=== PATIENT | female | born 1940 | race Caucasian/White ===

== ENCOUNTER 2016-10-19 15:57 | Emergency (ER) | payer MEDICARE, OTHER ==
[2016-10-19 16:08] VITALS: BP 117/59; PULSE 58; RESP 20; TEMP 97.8
[2016-10-19] MEDS ORDERED: IBUPROFEN 600 MG STARTER PACK 4 TAB BTL PO STA (16:28)
--- NOTE | 2016-10-19 16:30 | ED ---
General Adult HPI - General Chief complaint: Recheck/Abnormal Lab/Rx Stated complaint: arthritis Time Seen by Provider: 10/19/16 16:16 Source: patient Mode of arrival: ambulatory Limitations: no limitations - History of Present Illness Initial comments: Patient is a pleasantly demented 76-year-old female who presents to the emergency department for evaluation of bilateral hand pain. Patient is accompanied by her grandson who states that he took her to her primary care physician's office a week and a half ago at which time she was diagnosed with rheumatoid arthritis and prescribed a medication. The grandson is unsure what the medication was. He states that he took the prescription to a pharmacy and they were unable to fill it, they advised him that they needed to discuss the prescription with the prescribing physician. Grandson states that he has called the physician's office and left messages to times, he states that they have called him back but he has missed the calls, he also states that the pharmacy has not been able to fill the medication. He states that his grandma continues to complain about tightness in her hands every day so he came to the emergency department for further evaluation. Patient and the grandmother both deny any recent injuries. Grandson reports that she's been in her usual state of health, eating, drinking and acting her normal self. Patient denies any additional pain or other complaints. - Related Data Home Medications Medication Instructions Recorded Confirmed Donepezil HCl [Aricept Odt] 10 mg PO HS 09/21/13 10/19/16 Memantine HCl [Namenda Xr] 28 mg PO DAILY 09/21/13 10/19/16 traZODone HCL [Desyrel] 25 mg PO HS 09/21/13 10/19/16 Aspirin EC [Ecotrin] 325 mg PO DAILY 01/02/16 10/19/16 Cholecalciferol [Vitamin D3] 1,000 unit PO DAILY 01/02/16 10/19/16 Citalopram Hydrobromide [CeleXA] 10 mg PO DAILY 01/02/16 10/19/16 Cyanocobalamin [Vitamin B-12] 1,000 mcg PO DAILY 01/02/16 10/19/16 Folic Acid 0.4 mg PO DAILY 01/02/16 10/19/16 Meloxicam [Mobic] 7.5 mg PO DAILY PRN 01/02/16 10/19/16 Vit A/Vit C/Vit E/Zinc/Copper 1 cap PO BID 01/02/16 10/19/16 [ICAPS SOFTGEL] Previous Rx's Medication Instructions Recorded Ibuprofen [Motrin] 600 mg PO Q8HR PRN #30 tab 10/19/16 Allergies Allergy/AdvReac Type Severity Reaction Status Date / Time No Known Allergies Allergy Verified 10/19/16 16:24 Review of Systems ROS Statement: Those systems with pertinent positive or pertinent negative responses have been documented in the HPI. ROS Other: All systems not noted in ROS Statement are negative. Constitutional: Denies: fever, chills Respiratory: Denies: cough Cardiovascular: Denies: chest pain Gastrointestinal: Denies: abdominal pain, nausea, vomiting, diarrhea, constipation Genitourinary: Denies: urgency, dysuria Musculoskeletal: Reports: joint swelling, arthralgia. Denies: back pain Skin: Denies: rash, lesions, change in color, change in hair/nails, pruritus Neurological: Denies: headache, weakness Psychiatric: Denies: anxiety Hematological/Lymphatic: Denies: easy bleeding, easy bruising Past Medical History Past Medical History: Dementia, Rheumatoid Arthritis (RA) Additional Past Medical History / Comment(s): alzheimers, depression History of Any Multi-Drug Resistant Organisms: None Reported Additional Past Surgical History / Comment(s): left elbow surgery Past Psychological History: Depression Smoking Status: Never smoker Past Alcohol Use History: None Reported Past Drug Use History: None Reported General Exam Limitations: no limitations General appearance: alert, in no apparent distress Head exam: Present: atraumatic, normocephalic, normal inspection Eye exam: Present: PERRL ENT exam: Present: mucous membranes moist, other (edentulous) Neck exam: Present: normal inspection Respiratory exam: Present: normal lung sounds bilaterally. Absent: respiratory distress Cardiovascular Exam: Present: regular rate, normal rhythm GI/Abdominal exam: Present: soft. Absent: distended, tenderness Rectal exam: Present: deferred Extremities exam: Present: other ([place] nodes of DIP, full ROM of wrists and fingers, normal cap refill, normal sensation, normal strength) Neurological exam: Present: alert, other (oriented to self) Psychiatric exam: Present: other (pleasantly demented) Skin exam: Present: warm, dry, intact, normal color. Absent: rash, cyanosis, diaphoretic, erythema, urticaria, vesicles, petechiae, pallor, mottled, abrasion Course Vital Signs 10/19/16 16:06 Temperature 97.8 F Pulse Rate 58 L Respiratory 20 Rate Blood Pressure 117/59 O2 Sat by Pulse 96 Oximetry Medical Decision Making - Medical Decision Making Patient was seen and evaluated, history was obtained from the patient and her grandson at bedside Patient has a history of arthritis, was recently told she has rheumatoid arthritis Per the patient's grandson she has been prescribed a medication he has been unable to fill at the local pharmacy and has been unable to contact her primary care doctor to discuss this, grandson concerned that his grandmother continues to complain of tightness in her hands Physical exam with no neurovascular deficits in the hands, normal strength, normal sensation, normal cap refill, [place] nodes in the DIPs I advised the patient and her grandson that treatment of choice for arthritis is anti-inflammatory medications. Patient has no contraindications to taking NSAIDs, she has no history of GI bleeding, she is not on any anticoagulant medication and has no history of kidney disease per the grandson. Patient was given a dose of Motrin 600 and prescribed Motrin 600 3 times a day and advised to follow-up with her primary care physician. Patient remained pleasantly confused but was happy that she was offered medication, grandson expressed understanding and agreement with the plan. Advised to bring his grandmother back if she develops any worsening, any rashes or changes in her skin or develops any signs or symptoms which he finds concerning. Grandson expressed understanding of the plan. Disposition Clinical Impression: Arthritis Disposition: HOME SELF-CARE Condition: Good Instructions: Rheumatoid Arthritis (ED) Prescriptions: Ibuprofen [Motrin] 600 mg PO Q8HR PRN #30 tab PRN Reason: Pain Referrals: Trell Chung MD [Primary Care Provider] - 1-2 days
== END 2016-10-19 16:44 | disposition home or self-care (01) ==
LOC: EC 15:57
DX: M19.041 Primary osteoarthritis, right hand (principal); M19.042 Primary osteoarthritis, left hand; G30.9 Alzheimer's disease, unspecified; F02.80 Dementia in other diseases classified elsewhere, unspecified severity, without behavioral disturbance, psychotic disturbance, mood disturbance, and anxiety; M06.9 Rheumatoid arthritis, unspecified; F32.9 Major depressive disorder, single episode, unspecified; Z79.82 Long term (current) use of aspirin; Z79.899 Other long term (current) drug therapy
CPT/HCPCS: 99283

== ENCOUNTER → 2018-08-12 | Outpatient (CLI) | payer MEDICARE, OTHER ==
--- NOTE | 2018-08-12 15:06 | US ---
EXAMINATION TYPE: US abdomen comp/pelvis limited DATE OF EXAM: 08/12/2018 COMPARISON: None CLINICAL HISTORY: N18.9 RENAL INSUFFICIENCY,R94.5 ELEVATED LFTS. Pt special needs unable to take in a breath and hold it, poor historian EXAM MEASUREMENTS: Liver Length: 13.1 cm Gallbladder Wall: 0.2 cm CBD: 0.2 cm Spleen: 7.1 cm Right Kidney: 7.4 x 3.2 x 3.2 cm Left Kidney: 6.9 x 2.7 x 3.4 cm Post Void Residual: 0.5 mL Pancreas: Obscured by bowel gas Liver: Obscured by overlying bowel gas, portions seen wnl Gallbladder: multiple stones CBD: wnl Spleen: heterogenous Right Kidney: No hydronephrosis or masses seen Left Kidney: small upper pole cyst 0.6 x 0.5 x 0.6 cm Upper IVC: Obscured by overlying bowel gas Abd Aorta: Obscured by overlying bowel gas Bladder: wnl Bilateral Jets Seen No Normal Post Void Residual (normal less than 50ml) Yes Bladder is poorly distended and thus suboptimally evaluated. Pancreas is suboptimally seen on images saved secondary to shadowing from overlying bowel gas per technologist. Visualized liver is heterogen eous without mass or ductal dilatation. Gallbladder is seen with multiple mobile shadowing gallstones . No pericholecystic fluid or abnormal gallbladder wall thickening is present. Some cortical thinning and atrophy of both kidneys is seen without hydronephrosis. Increased cortical echogenicity left kid lynn is noted. Markedly heterogeneous spleen may reflect replacement by numerous calcified granulomas. IMPRESSION: Suboptimal study with findings consistent with products of chronic medical renal disease as there is cortical thinning and atrophy with increased cortical echogenicity. Probable mild diffuse fatty infiltration of liver.
== END ==
LOC: RADUSWWP 07:06
PROVIDERS: ATTEND Internal Medicine
DX: N18.9 Chronic kidney disease, unspecified (principal); R94.5 Abnormal results of liver function studies
CPT/HCPCS: 76700; 76857

== ENCOUNTER 2019-09-28 10:16 | Inpatient (IN) | payer MEDICARE, OTHER ==
--- NOTE | 2019-09-28 11:23 | XR ---
EXAMINATION TYPE: AP view pelvis and 2 views right hip 2 views right femur DATE OF EXAM: 09/28/2019 COMPARISON: NONE HISTORY: 79-year-old female fall with pain FINDINGS: Osteopenia. Dominant bowel content obscures the sacrum. Possible prominent distention of the stomach. Mild degenerative change of both hips. A mildly comminuted, mildly impacted intertrochanteric fractu re of the proximal right femur. The mid to distal right femur shows no acute fracture. IMPRESSION (pelvis, right hip, right femur): Impacted and mildly comminuted intertrochanteric fracture proximal right femur.
--- NOTE | 2019-09-28 12:44 | ED ---
Fall HPI - General Chief Complaint: Fall Stated Complaint: fall, hip pain Time Seen by Provider: 09/28/19 10:16 Source: patient, family, EMS Mode of arrival: EMS - History of Present Illness Initial Comments: Is a 79-year-old female who had been over the cook pickled meat a blank which fell landing on her buttock. She complains right side pain. She was brought in by EMS. In position comfort she did appear to have a shortening of the right lower extremity. No head neck or back injury reported patient herself is a poor historian MD Complaint: fall - Related Data Home Medications Medication Instructions Recorded Confirmed Aspirin EC [Ecotrin] 325 mg PO HS 01/02/16 09/28/19 Acetaminophen [Tylenol] 1,000 mg PO BID 09/28/19 09/28/19 Memantine HCl/Donepezil HCl 1 tab PO DAILY 09/28/19 09/28/19 [Namzaric 28 mg-10 mg Capsule] Allergies Allergy/AdvReac Type Severity Reaction Status Date / Time No Known Allergies Allergy Verified 09/28/19 12:15 Review of Systems ROS Statement: Those systems with pertinent positive or pertinent negative responses have been documented in the HPI. ROS Other: All systems not noted in ROS Statement are negative. Past Medical History Past Medical History: Dementia, Rheumatoid Arthritis (RA) Additional Past Medical History / Comment(s): alzheimers, depression History of Any Multi-Drug Resistant Organisms: None Reported Additional Past Surgical History / Comment(s): left elbow surgery, c section 1996 Past Psychological History: Depression Smoking Status: Never smoker Past Alcohol Use History: None Reported Past Drug Use History: None Reported General Exam - General Exam Comments Initial Comments: This a well-developed asthenic appearing female Limitations: no limitations General appearance: alert, anxious, in distress Head exam: Present: atraumatic, normocephalic, normal inspection Eye exam: Present: normal appearance, PERRL, EOMI. Absent: scleral icterus, conjunctival injection, periorbital swelling ENT exam: Present: normal exam, mucous membranes moist Neck exam: Present: normal inspection. Absent: tenderness, meningismus, lymphadenopathy Respiratory exam: Present: normal lung sounds bilaterally. Absent: respiratory distress, wheezes, rales, rhonchi, stridor Cardiovascular Exam: Present: normal rhythm, bradycardia, normal heart sounds. Absent: systolic murmur, diastolic murmur, rubs, gallop, clicks GI/Abdominal exam: Present: soft, normal bowel sounds. Absent: distended, tenderness, guarding, rebound, rigid Rectal exam: Present: deferred Extremities exam: Present: tenderness, normal capillary refill, other (There is palpation of the right hip to palpation no definite step-off or crepitation no overt tenderness on pelvic rock.). Absent: full ROM, pedal edema, joint swelling, calf tenderness Back exam: Present: normal inspection Neurological exam: Present: alert, oriented X3, CN II-XII intact Psychiatric exam: Present: normal affect, normal mood Skin exam: Present: warm, dry, intact, normal color. Absent: rash Course Vital Signs 09/28/19 10:21 Temperature 98.0 F Pulse Rate 53 L Respiratory 16 Rate Blood Pressure 122/77 O2 Sat by Pulse 98 Oximetry Medical Decision Making - Medical Decision Making I did discuss the case with the patient and family members. I also did discuss case with Rosanne who is the PA for Dr. Dick. Patient will be admitted. Medical clearance by Dr. Mederos who I did contact. - Radiology Data Radiology results: report reviewed (I did review the imaging and reports patient does have an impacted IT fracture of the right hip.), image reviewed Disposition Clinical Impression: Fall, Closed right hip fracture Disposition: ADMITTED IP TO THIS [facility] Condition: Fair Referrals: Trell Chung MD [Primary Care Provider] - 1-2 days
[2019-09-28] MEDS ORDERED: NALOXONE 0.4 MG/ML 1 ML VIAL IV PRN (12:51)
[2019-09-28] MEDS ORDERED: ACETAMINOPHEN TAB 325 MG TAB PO PRN (12:51)
--- NOTE | 2019-09-28 13:03 | XR ---
EXAMINATION TYPE: XR chest 1V portable DATE OF EXAM: 09/28/2019 Comparison: 09/21/2013 Clinical History: 79-year-old female pain after Fall. Hip fracture. Findings: Low lung volumes. Heart borderline enlarged. Mild interstitial prominence. No consolidation or pleura l effusion seen. Impression: Hypoventilatory changes. No acute cardiopulmonary process.
[2019-09-28 13:21] LABS: Basophils % (A) 0 %; Eosinophils # (A) 0.2 k/uL (0-0.7); Eosinophils % (A) 1 %; HCT 44.3 % (34.0-46.0); HGB 14.1 gm/dL (11.4-16.0); Hypochromasia Slight; Lymphocytes # (A) 0.6 k/uL (1.0-4.8); Lymphocytes % (A) 4 %; MCH 32.1 pg (25.0-35.0); MCHC 31.8 g/dL (31.0-37.0); MCV 100.7 fL (80.0-100.0); Macrocytosis Slight; Mean Platelet Volume 7.9; Monocytes # (A) 0.5 k/uL (0-1.0); Monocytes % (A) 3 %; Neutrophils % (A) 91 %; Platelet Count 601 k/uL (150-450); RBC 4.39 m/uL (3.80-5.40); RDW 14.2 % (11.5-15.5); WBC 15.3 k/uL (3.8-10.6)
[2019-09-28 13:30] LABS: Albumin 4.1 g/dL (3.5-5.0); Calcium 9.3 mg/dL (8.4-10.2); Potassium 4.4 mmol/L (3.5-5.1); Total Bilirubin 0.4 mg/dL (0.2-1.3); Total Protein 6.9 g/dL (6.3-8.2)
[2019-09-28 13:32] LABS: Prothrombin Time 10.3 sec (9.0-12.0)
[2019-09-28] MEDS: SODIUM CHLORIDE 0.9% 1,000 ML IV SCH (13:35)
[2019-09-28 13:55] LABS: Appearance,Urine Cloudy (Clear); Bacteria,Urine Many /hpf; Bilirubin,Urine Negative (Negative); Blood,Urine Small (Negative); Color,Urine Yellow; Glucose,Urine (UA) Negative (Negative); Ketones,Urine Negative (Negative); Leukocyte Esterase,Urine Large (Negative); Mucus,Urine Moderate /hpf; Nitrite,Urine Negative (Negative); Protein,Urine 1+ (Negative); RBC,Urine 3 /hpf (0-5); Specific Gravity,Urine 1.032 (1.001-1.035); Squamous Epithelial Cell,Urine 5 /hpf (0-4); WBC,Urine 74 /hpf (0-5)
[2019-09-28] MEDS ORDERED: ALPRAZolam 0.25 MG TAB PO PRN (14:43)
[2019-09-28] MEDS ORDERED: HYDROmorphone 0.5 MG/0.5 ML SYRINGE IVP PRN (14:43)
--- NOTE | 2019-09-28 16:54 | XR ---
EXAMINATION TYPE: XR abdomen 1V DATE OF EXAM: 09/28/2019 4:36 PM CLINICAL HISTORY: Abdominal pain and distention. TECHNIQUE: Single supine KUB image of the abdomen is obtained. COMPARISON: None. FINDINGS: Gas prominent small and large bowel loops throughout the abdomen and pelvis greatest in the left side where suspected gas dilated colonic loops. Lung bases are not included. Osseous structures are demineralized. IMPRESSION: Overall nonspecific bowel gas pattern. Possible left-sided ileus. Other etiologies not ex cluded. At minimum short-term radiographic follow-up is advised.
[2019-09-28] MEDS: PANTOPRAZOLE 40 MG/10 ML VIAL IVP SCH (22:20)
--- NOTE | 2019-09-28 23:17 | CONS ---
CONSULTATION DATE OF SERVICE: 09/28/2019 REASON FOR CONSULTATION: Advice regarding rheumatoid arthritis and multiple medical issues, requested by Dr. Dick, as well as preoperative clearance. HISTORY OF PRESENT ILLNESS: This 79-year-old woman with a past medical history of dementia, rheumatoid arthritis, Alzheimer's dementia, was living with her son, who is also the legal guardian. The patient apparently had a fall and then went to the bathroom, and subsequently patient again fell. Patient suffered also some shortening of the right extremity. Patient was complaining of severe pain. X-ray showed severe osteopenia as well as impacted, mildly comminuted intertrochanteric fracture of the proximal right femur, and the patient was admitted for further evaluation and treatment. There is no history of any fever, rigor or chills. No history of headache, loss of consciousness, seizures. The hip x-ray also showed some apparent distention of the stomach. PAST MEDICAL HISTORY: Dementia, rheumatoid arthritis, Alzheimer's, depression after elbow surgery. MEDICATIONS: 1. Tylenol p.r.n. 2. Namenda 1 tablet p.o. daily. 3. Ecotrin 320 at bedtime. ALLERGIES: NONE. FAMILY HISTORY: No history of heart disease or strokes in the family. SOCIAL HISTORY: No history of smoking. No history of alcohol intake. REVIEW OF SYSTEMS: ENT: Diminished hearing. Diminished vision. CARDIOVASCULAR SYSTEM: No angina, palpitations. RESPIRATORY SYSTEM: No cough, hemoptysis. GI: As mentioned earlier. : No dysuria or retention. NERVOUS SYSTEM: As mentioned earlier. ALLERGY/IMMUNOLOGY: No asthma, hayfever. MUSCULOSKELETAL: As mentioned earlier. HEMATOLOGY/ONCOLOGY: No history of anemia. ENDOCRINE: No history of diabetes, hypothyroidism. CONSTITUTIONAL: As mentioned earlier. DERMATOLOGY: Negative. RHEUMATOLOGY: Negative. PSYCHIATRY: As mentioned earlier. PHYSICAL EXAMINATION: Patient alert and oriented x3. Pulse 53, blood pressure 122/77, respirations 16, temperature 98 degrees, pulse ox 98% on room air. HEENT: Conjunctivae normal. Oral mucosa moist. NECK: No jugular venous distention. No carotid bruit. No lymph node enlargement. CARDIOVASCULAR SYSTEM: S1, S2 muffled. RESPIRATORY SYSTEM: Breath sounds diminished at the bases. No rhonchi. No crackles. ABDOMEN: Soft. Mild diffuse distention. No tenderness. No mass palpable. LEGS: Status post right hip fracture. NERVOUS SYSTEM: Higher functions as mentioned earlier. Moves all 4 limbs. No focal motor or sensory deficit. LYMPHATICS: No lymph node palpable in neck, axillae or groin. SKIN: No ulcer, rash, bleeding. JOINTS: As mentioned earlier. LYMPHATICS: No lymph node palpable in neck, axillae or groin. LABS: WBC 15.3, hemoglobin 14.1, MCV 107. Creatinine is 1.15. Alkaline phosphatase is 139. UA noted. ASSESSMENT: 1. Status post fall and right intertrochanteric proximal right femur fracture. 2. Acute urinary tract infection, present on admission. 3. Increased creatinine with mild acute renal failure with dehydration. 4. Increased white count. 5. Increased mean corpuscular volume. 6. Increased platelets. 7. Minimal abdominal distention. 8. Dementia. 9. Rheumatoid arthritis. 10.Alzheimer's. 11.Depression. 12.History of left elbow surgery. 13.FULL CODE. RECOMMENDATIONS AND DISCUSSION: In this 79-year-old woman who presented with multiple medical issues, at this time I recommend to continue current medications, continue symptomatic treatment. Otherwise, I reviewed the labs and the EKG, which showed some sinus bradycardia. Otherwise, the patient was asymptomatic prior to the illness, and the patient appears to have had good exercise tolerance prior to the fall. As mentioned earlier, the patient has some minimal acute renal failure as well as UTI. Will initiate IV antibiotics, hydration, IV fluids. Repeat labs in the morning. DVT prophylaxis. Incentive spirometry. Patient will be cleared for surgery. I would also recommend acute abdominal series to rule out the possibility of any significant ileus at this time. Otherwise, thank you, Dr. Dick, for letting us participate in the care of this patient. A copy of this dictation is being forwarded to Dr. Chung, who is the primary physician. MMODL / IJN: [id number] /
[2019-09-29] MEDS: SODIUM CHLORIDE 0.9% 1,000 ML IV SCH ×2 (02:41→18:52)
[2019-09-29] MEDS ORDERED: PANTOPRAZOLE 40 MG TABLET PO SCH (07:30)
[2019-09-29] MEDS: MULTIVITAMINS, THERA 1 EACH TAB PO SCH (09:07)
[2019-09-29] MEDS: HYDROcodone/APAP 5-325MG 1 EACH TAB PO PRN (09:07)
[2019-09-29] MEDS: DONEPEZIL 10 MG TAB PO SCH (09:07)
[2019-09-29] MEDS: PANTOPRAZOLE 40 MG/10 ML VIAL IVP SCH ×2 (09:07→21:09)
[2019-09-29] MEDS: MEMANTINE 10 MG TAB PO SCH ×2 (09:07→21:09)
[2019-09-29 10:19] LABS: Basophils % (A) 0 %; Eosinophils # (A) 0.1 k/uL (0-0.7); Eosinophils % (A) 1 %; HCT 39.2 % (34.0-46.0); Hypochromasia Slight; Lymphocytes # (A) 0.7 k/uL (1.0-4.8); Lymphocytes % (A) 6 %; MCH 33.8 pg (25.0-35.0); MCHC 33.1 g/dL (31.0-37.0); MCV 102.2 fL (80.0-100.0); Macrocytosis Slight; Mean Platelet Volume 8.3; Monocytes # (A) 0.8 k/uL (0-1.0); Monocytes % (A) 7 %; Neutrophils # (A) 9.8 k/uL (1.3-7.7); Neutrophils % (A) 85 %; Platelet Count 557 k/uL (150-450); RBC 3.83 m/uL (3.80-5.40); RDW 14.1 % (11.5-15.5); WBC 11.5 k/uL (3.8-10.6)
[2019-09-29 10:46] LABS: Potassium 4.7 mmol/L (3.5-5.1)
--- NOTE | 2019-09-29 12:10 | P.HPOR ---
History of Present Illness H&P Date: 09/29/19 This is an 79-year-old female who is admitted for right hip fracture after a fall. Patient has dementia and is a poor historian. No family is present in the room. Patient presented to the emergency room via EMS on 09/28/2019 and x- rays revealed intertrochanteric fracture of the right hip. Patient was then admitted for further management. Patient does complain of pain in the right hip today. Patient did answer yes or no questions today and denied pain elsewhere, other than in the right hip. Patient denies any fever/chills, numbness, weakness, tingling, abdominal pain, shortness of breath or chest pain. Review of Systems See HPI. Past Medical History Past Medical History: Dementia, Rheumatoid Arthritis (RA) Additional Past Medical History / Comment(s): alzheimers, depression History of Any Multi-Drug Resistant Organisms: None Reported Additional Past Surgical History / Comment(s): left elbow surgery, c section 1996 Past Anesthesia/Blood Transfusion Reactions: No Reported Reaction Past Psychological History: Depression Smoking Status: Never smoker Past Alcohol Use History: None Reported Past Drug Use History: None Reported - Past Family History Sister(s) Family Medical History: Diabetes Mellitus, Hypertension Medications and Allergies Home Medications Medication Instructions Recorded Confirmed Type Aspirin EC [Ecotrin] 325 mg PO HS 01/02/16 09/28/19 History Acetaminophen [Tylenol] 1,000 mg PO BID 09/28/19 09/28/19 History Memantine HCl/Donepezil HCl 1 tab PO DAILY 09/28/19 09/28/19 History [Namzaric 28 mg-10 mg Capsule] Allergies Allergy/AdvReac Type Severity Reaction Status Date / Time No Known Allergies Allergy Verified 09/28/19 12:15 Physical Examination On exam patient is resting comfortably in bed in no acute distress. Patient does answer yes or no to questions about pain and is alert. Right lower extremity exam: There is tenderness to palpation over the right hip. There right lower extremity is mildly shortened and externally rotated. Skin is intact. Dorsalis pedis pulse is 2+. The right lower extremity is warm and well perfused. Compartments are soft. Calf is soft and nontender to palpation. Sensation intact. Neurovascular status and circulatory status are intact. Exams of the head, neck, bilateral upper extremities and left lower extremity are within normal limits. Results X-rays of the right hip, pelvis and femur show an impacted and mildly comminuted intertrochanteric fracture of the proximal right femur. - Labs Labs: Abnormal Lab Results - Last 24 Hours (Table) 09/28/19 09/28/19 09/28/19 Range/Units 13:12 13:12 13:12 WBC 15.3 H (3.8-10.6) k/uL MCV 100.7 H (80.0-100.0) fL Plt Count 601 H (150-450) k/uL Neutrophils # 14.0 H (1.3-7.7) k/uL Lymphocytes # 0.6 L (1.0-4.8) k/uL APTT 20.0 L (22.0-30.0) sec BUN 21 H (7-17) mg/dL Creatinine 1.15 H (0.52-1.04) mg/dL Glucose 109 H (74-99) mg/dL Alkaline Phosphatase 139 H (38-126) U/L Urine Appearance (Clear) Urine Protein (Negative) Urine Blood (Negative) Ur Leukocyte Esterase (Negative) Urine WBC (0-5) /hpf Urine WBC Clumps (None) /hpf Ur Squamous Epith Cells (0-4) /hpf Urine Bacteria (None) /hpf Urine Mucus (None) /hpf 09/28/19 Range/Units 13:28 WBC (3.8-10.6) k/uL MCV (80.0-100.0) fL Plt Count (150-450) k/uL Neutrophils # (1.3-7.7) k/uL Lymphocytes # (1.0-4.8) k/uL APTT (22.0-30.0) sec BUN (7-17) mg/dL Creatinine (0.52-1.04) mg/dL Glucose (74-99) mg/dL Alkaline Phosphatase (38-126) U/L Urine Appearance Cloudy H (Clear) Urine Protein 1+ H (Negative) Urine Blood Small H (Negative) Ur Leukocyte Esterase Large H (Negative) Urine WBC 74 H (0-5) /hpf Urine WBC Clumps Many H (None) /hpf Ur Squamous Epith Cells 5 H (0-4) /hpf Urine Bacteria Many H (None) /hpf Urine Mucus Moderate H (None) /hpf H & H 09/28/19 Range/Units 13:12 Hgb 14.1 (11.4-16.0) gm/dL Hct 44.3 (34.0-46.0) % Coagulation 09/28/19 Range/Units 13:12 INR 1.0 (<1.2) Result Diagrams: 09/29/19 09:22 09/29/19 09:22 Assessment and Plan (1) Closed right hip fracture Current Visit: Yes Status: Acute Code(s): S72.001A - FRACTURE OF UNSP PART OF NECK OF RIGHT FEMUR, INIT SNOMED Code(s): 516809462 (2) Fall Current Visit: Yes Status: Acute Code(s): W19.XXXA - UNSPECIFIED FALL, INITIAL ENCOUNTER SNOMED Code(s): 8975364 Plan: 1. Patient is to be NPO after midnight. 2. Continue pain control. 3. Nonweightbearing to the right lower extremity. 4. Awaiting medical clearance. 5. Planning for closed reduction and intramedullary hip screw fixation of the right femur on 09/30/[address] Dick pending medical clearance and consent.
[2019-09-30] MEDS: SODIUM CHLORIDE 0.9% 1,000 ML IV SCH ×3 (01:39→18:16)
--- NOTE | 2019-09-30 01:42 | PN ---
PROGRESS NOTE DATE OF SERVICE: 09/29/2019 This 79-year-old woman who was admitted with a fall and right intertrochanteric proximal right femoral fracture was slated to have surgery tomorrow. The patient had some gastric distention on the x-ray, but nonspecific bowel pattern was noted. No chest pain. No palpitations. No fever. PHYSICAL EXAMINATION: On exam, alert and oriented x3. The pulse is 61, blood pressure 114/63, respirations 16, temperature 99.9, pulse ox 93% on room air. HEENT: Conjunctivae normal. NECK: No jugular venous distention. CARDIOVASCULAR: S1, S2 muffled. RESPIRATORY: Breath sounds diminished in the bases. No rhonchi, no crackles. ABDOMEN: Soft, nontender. No mass palpable. LEGS: Status post fracture. NERVOUS SYSTEM: No focal deficits. LABS: WBC 11.5, sodium 142, potassium 4.7. UA noted. Cultures are pending at this time. ASSESSMENT: 1. Status post fall and right intertrochanteric proximal right hip femoral fracture. 2. Acute urinary tract infection, present on admission. 3. Increased creatinine with mild acute renal failure with dehydration. 4. Increased WBC. 5. Increased MCV. 6. Increased platelets. 7. Minimal abdominal distention. 8. Dementia. 9. Rheumatoid arthritis. 10.Alzheimer's. 11.Depression. 12.History of left elbow surgery. 13.FULL CODE. RECOMMENDATIONS AND DISCUSSION: Recommend to continue current medications, continue symptomatic treatment. Otherwise the patient is medically stable for surgery with some extra risks because of the advanced age and multiple other medical issues. Cleared for surgery. We will closely monitor with Orthopedic Surgery. Further recommendations to follow. MMODL / IJN: [id number] /
[2019-09-30] MEDS: PANTOPRAZOLE 40 MG/10 ML VIAL IVP SCH ×2 (07:26→20:16)
[2019-09-30] MEDS: MEMANTINE 10 MG TAB PO SCH ×2 (07:28→20:16)
[2019-09-30] MEDS: DONEPEZIL 10 MG TAB PO SCH (07:28)
[2019-09-30 11:39] LABS: Calcium 8.5 mg/dL (8.4-10.2); Potassium 3.7 mmol/L (3.5-5.1)
[2019-09-30] MEDS: MULTIVITAMINS, THERA 1 EACH TAB PO SCH (11:42)
[2019-09-30 11:46] LABS: Basophils # (A) 0.1 k/uL (0-0.2); Basophils % (A) 0 %; Eosinophils # (A) 0.1 k/uL (0-0.7); Eosinophils % (A) 1 %; HCT 38.6 % (34.0-46.0); HGB 12.5 gm/dL (11.4-16.0); Lymphocytes # (A) 0.6 k/uL (1.0-4.8); Lymphocytes % (A) 4 %; MCH 32.4 pg (25.0-35.0); MCHC 32.4 g/dL (31.0-37.0); Macrocytosis Slight; Mean Platelet Volume 8.4; Monocytes # (A) 0.9 k/uL (0-1.0); Monocytes % (A) 7 %; Neutrophils # (A) 12.6 k/uL (1.3-7.7); Neutrophils % (A) 87 %; Platelet Count 507 k/uL (150-450); RBC 3.86 m/uL (3.80-5.40); RDW 14.1 % (11.5-15.5); WBC 14.5 k/uL (3.8-10.6)
[2019-09-30] MEDS ORDERED: ONDANSETRON 4 MG/2 ML VIAL IVP PRN (14:19)
[2019-09-30] MEDS ORDERED: DEXAMETHASONE SOD PHOSPHATE 10 MG/ML 1 ML VIAL IV ONE (14:19)
[2019-09-30] MEDS ORDERED: HYDROmorphone 0.5 MG/0.5 ML SYRINGE IVP PRN ×4 (14:19→16:06)
[2019-09-30] MEDS ORDERED: LIDOCAINE 1% (10MG/ML) FOR IV START INTRADERMA PRN (14:19)
[2019-09-30] MEDS: LACTATED RINGERS 1,000 ML IV SCH (14:26)
[2019-09-30] MEDS ORDERED: ONDANSETRON 4 MG/2 ML VIAL ONE (14:32)
[2019-09-30] MEDS ORDERED: NALOXONE 0.4 MG/ML 1 ML VIAL IV PRN (16:06)
[2019-09-30] MEDS ORDERED: traMADol 50 MG TAB PO PRN ×2 (16:08)
[2019-09-30] MEDS ORDERED: MIDAZOLAM 2 MG/2 ML VIAL ONE (16:14)
[2019-09-30] MEDS ORDERED: PROPOFOL 10 MG/ML 20 ML VIAL IV ONE (16:14)
[2019-09-30] MEDS ORDERED: KETAMINE 10 MG/ML 20 ML VIAL ONE (16:14)
[2019-09-30] MEDS ORDERED: ceFAZolin 1,000 MG in SODIUM CHLORIDE 0.9% 1,000 ML IRRIGATION ONE (16:57)
--- NOTE | 2019-09-30 17:15 | P.OP ---
Date of Procedure: 09/30/19 Procedure(s) Performed: PREOPERATIVE DIAGNOSIS: Right hip intertrochanteric fracture. POSTOPERATIVE DIAGNOSIS: Right hip intertrochanteric fracture. OPERATION: Right hip intertrochanteric fracture closed reduction and intramedullary nailing using Synthes IT nail. DONOR SUPPORT TECHNICIAN: Rosanne Jack PA-C (Assistance with: Patient positioning, retraction, exposure, hemostasis, fixation, irrigation, closure, dressing) ANESTHESIA: Spinal ESTIMATED BLOOD LOSS: 50 mL. COMPLICATIONS: None OPERATIVE FINDINGS: See dictation INDICATIONS: Mrs. Landers is 79 yo lady with a history of right intertrochanteric fracture. The patient presents to the operating room today for closed reduction and intramedullary nailing. I discussed the risks of surgery in detail as being inclusive of but not limited to: Bleeding, infection, scarring, discomfort, blood vessel and/or nerve damage, need for further surgery, malunion, nonunion, gait disturbance including persistent or permanent limp, limb length inequality, arthritis, hardware failure, blood clot, pulmonary embolism, , and other risks. The consent form has been signed. PROCEDURE: After appropriate consent was obtained, the patient was taken to the operating room and placed in supine position. [Spinal] anesthetic was administered and after confirmation of adequate anesthesia, the patient was carefully placed in the supine position on the operating room table in the fracture table. The patient was placed up against a well-padded peroneal post. Care was taken to make sure about that all pressure points were adequately padded. The affected leg was placed in boot traction and the unaffected leg was placed in a well leg man. Using gentle longitudinal distraction as well as adduction and internal rotation, the fracture was reduced as assessed by AP and lateral C-arm imaging. Once a satisfactory reduction had been obtained, the thigh was prepped and draped in the usual aseptic fashion using ChloraPrep. Ioban drape was used for the case and the patient received intravenous antibiotics prior to incision. Timeout was called, confirming patient identity, side, procedure, and administration of antibiotics. The incision was then created with a #10 blade just proximal to the greater trochanter laterally. It was carried down through skin into the subcutaneous tissues and through fascia. Hemostasis was obtained using electrocautery. The tip of the greater trochanter was palpated and a guide pin was placed at the tip and directed into the femoral shaft as assessed with C-arm imaging. Once optimal pin position had been obtained, a 17 mm reamer was used over the guide pin to create a path for the IT nail. IT nail selected was assembled to the insertion jig on the back table and bushings were checked for accuracy. The nail was then inserted using gentle mallet taps until it was fully deployed. The amount of rotation of the implant was assessed based on the amount of anteversion of the femoral neck. This was rotated to match the patient's femoral neck anteversion and the helical blade guide was placed through the insertion jig and through an incision on the lateral side of the thigh more distal than the first. Once this guide was placed against the lateral cortex of the femur, a guide pin was drilled into the central region of the femoral head and neck as based on AP and lateral C-arm imaging. Once optimal pin position had been obtained, the guidewire was measured and appropriately sized helical blade was selected. The path for the helical blade was prepared using a tapered reamer. The helical blade was then inserted using gentle mallet taps along the guidewire until it was fully deployed. There was no displacement of the fracture during this step. The anti-rotation screw was locked down and the insertion apparatus for the helical blade was removed. The guide pin was then removed. Traction was then removed from the leg and the distal interlock was placed through the jig using standard technique. Finally, the insertion jig for the nail was removed and final C-arm images were taken and saved in both AP and lateral planes. The final x-rays showed satisfactory positioning of the implant and good reduction of the fracture. The top of the nail was plugged with a small quantity of bone wax and the incisions were then thoroughly irrigated with normal saline. Final hemostasis was obtained using electrocautery and closure of the fascia was performed using 0-Vicryl suture. 2-0 Vicryl suture was used in the subcutaneous tissues and standard skin closure was performed. Sterile dressing was then applied and the patient was carefully removed from the fracture table frame and placed onto the stretcher. The patient tolerated the procedure well. There were no complications and above noted blood loss. The patient was then subsequently transferred to recovery room in stable condition. Sponge and needle counts were correct.
[2019-09-30 18:42] LABS: HCT 39.1 % (34.0-46.0); Hypochromasia Slight; MCH 30.9 pg (25.0-35.0); MCHC 30.8 g/dL (31.0-37.0); MCV 100.5 fL (80.0-100.0); Macrocytosis Slight; Mean Platelet Volume 8.7; Platelet Count 390 k/uL (150-450); RBC 3.89 m/uL (3.80-5.40); RDW 14.2 % (11.5-15.5); WBC 12.5 k/uL (3.8-10.6)
--- NOTE | 2019-09-30 19:00 | XR ---
EXAMINATION TYPE: XR Hip Limited RT DATE OF EXAM: 09/30/2019 COMPARISON: 09/28/2019 HISTORY: Postop TECHNIQUE: FINDINGS: Single view shows intramedullary denita and transverse screw fixing the intertrochanteric comm inuted fracture of the right femur. Fragments are in anatomic position. IMPRESSION: No complicating process seen.
--- NOTE | 2019-09-30 19:34 | XR ---
EXAMINATION TYPE: XR Hip Complete RT DATE OF EXAM: 09/30/2019 COMPARISON: 09/28/2019 HISTORY: Hip surgery TECHNIQUE: 2 views Fluoroscopic images FINDINGS: There is intramedullary denita and transverse screw fixing the intertrochanteric comminuted fr acture of the right femur and regional anatomic position. IMPRESSION: Satisfactory reduction. No complicating process seen.
[2019-09-30 19:44] LABS: Basophils # (M) 0.25 k/uL (0-0.2); Monocytes # (M) 1.25 k/uL (0-1.0); Neutrophils % (M) 84 %; Nucleated Red Blood Cells 0 /100 WBC (0-0); Total Cells Counted 100
[2019-09-30] MEDS: ASPIRIN 325 MG TAB PO SCH (20:16)
[2019-09-30] MEDS: SENNOSIDES-DOCUSATE SODIUM 1 EACH TAB PO SCH (20:17)
[2019-09-30] MEDS ORDERED: ASPIRIN 325 MG TAB PO SCH (21:00)
--- NOTE | 2019-09-30 21:49 | PN ---
PROGRESS NOTE DATE OF SERVICE: 09/30/2019 This 79-year-old woman who was admitted with a fall and right intertrochanteric fracture underwent right hip intertrochanteric fracture closed reduction intramedullary nailing using Synthes [address] Dick. The patient tolerated the procedure. No chest pain. No palpitations. No fever. PHYSICAL EXAMINATION: Alert and oriented x3. Pulse 59, blood pressure 119/72, respirations 16, temperature 97.2, pulse ox 92% on room air. HEENT: Conjunctivae normal. NECK: No jugular venous distention. CARDIOVASCULAR SYSTEM: S1, S2 muffled. RESPIRATORY SYSTEM: Breath sounds diminished at the bases. No rhonchi. No crackles. ABDOMEN: Soft, non-tender. LEGS: Status post surgery. NERVOUS SYSTEM: No focal deficit. LABS: WBC 12.5, sodium 147. UA noted. ASSESSMENT: 1. Fall and right intertrochanteric proximal right hip femoral fracture, status post closed reduction and intramedullary nailing using a Synthes nail. 2. Increased white count. 3. Acute urinary tract infection, present on admission. 4. Increased creatinine with mild acute renal failure, present on admission. 5. Increased mean corpuscular volume. 6. Increased platelets. 7. Minimal abdominal distention, improved. 8. Dementia. 9. Rheumatoid arthritis. 10.History of dementia, Alzheimer's. 11.Depression. 12.History of left elbow surgery. 13.FULL CODE. RECOMMENDATIONS AND DISCUSSION: In this 79-year-old woman who presented with multiple complex medical issues, we will monitor the patient closely, continue the current medications, continue symptomatic treatment. Follow the patient closely with Surgery. Empiric antibiotics. Repeat labs. We will follow the patient closely. Possible ECF rehab. We will monitor along with Orthopedic Surgery. Further recommendations to follow. MMODL / IJN: [id number] /
[2019-10-01] MEDS: SODIUM CHLORIDE 0.9% 1,000 ML IV SCH ×4 (04:44→23:57)
--- NOTE | 2019-10-01 08:41 | P.PN ---
Subjective Progress Note Date: 10/01/19 This is an 79-year-old female who is status post closed reduction an intramedullary nailing of the right hip. This is postoperative day #1 and patient is seen and evaluated at bedside. Patient is pleasantly confused, but is able to admit to some pain in her right hip today. Patient denies any new complaints today. Objective - Vital Signs Vital signs: Vital Signs Temp 99.1 F 10/01/19 07:23 Pulse 75 10/01/19 07:23 Resp 16 10/01/19 07:23 BP 117/71 10/01/19 07:23 Pulse Ox 93 L 10/01/19 07:23 Intake & Output 09/30/19 10/01/19 10/01/19 18:59 06:59 18:59 Intake Total 901 850 Output Total 50 800 Balance 851 50 Intake: IV 901 Intake, IV Titration 850 Amount Sodium Chloride 0.9% 1, 800 000 ml @ 60 mls/hr IV . [id number] [facility] Rx#:[id number] ceFAZolin 2 gm In Sodium 50 Chloride 0.9% 50 ml @ 100 mls/hr IVPB Q8HR [facility] Rx# :[id number] Output: Urine 800 Straight 800 Estimated Blood Loss 50 Other: Voiding Method Diaper # Bowel Movements 0 - Exam Vital signs are stable. Patient is in no acute distress and is alert and oriented 3. Calf is soft and nontender to palpation. Dressings are clean, dry, and intact. The right lower extremity is warm and well perfused. Neurovascular status and circulatory status are intact. - Labs CBC & Chem 7: 09/30/19 18:23 09/30/19 10:53 Labs: Abnormal Lab Results - Last 24 Hours (Table) 09/30/19 09/30/19 09/30/19 Range/Units 10:53 10:53 18:23 WBC 14.5 H 12.5 H (3.8-10.6) k/uL MCV 100.5 H (80.0-100.0) fL MCHC 30.8 L (31.0-37.0) g/dL Plt Count 507 H (150-450) k/uL Neutrophils # 12.6 H (1.3-7.7) k/uL Neutrophils # (Manual) 10.50 H (1.3-7.7) k/uL Lymphocytes # 0.6 L (1.0-4.8) k/uL Lymphocytes # (Manual) 0.50 L (1.0-4.8) k/uL Monocytes # (Manual) 1.25 H (0-1.0) k/uL Basophils # (Manual) 0.25 H (0-0.2) k/uL Chloride 111 H (98-107) mmol/L Glucose 111 H (74-99) mg/dL Microbiology - Last 24 Hours (Table) 09/28/19 15:49 Blood Culture - Preliminary Blood No Growth after 48 hours 09/28/19 13:28 Urine Culture - Preliminary Urine,Catheterized Gram Neg Bacilli Assessment and Plan (1) Closed right hip fracture Current Visit: Yes Status: Acute Code(s): S72.001A - FRACTURE OF UNSP PART OF NECK OF RIGHT FEMUR, INIT SNOMED Code(s): 212881630 (2) Fall Current Visit: Yes Status: Acute Code(s): W19.XXXA - UNSPECIFIED FALL, INITIAL ENCOUNTER SNOMED Code(s): 0795084 Plan: 1. 50% weightbearing to the right lower extremity. 2. Dressings to stay intact for 10 days. 3. May shower with dressings in place. 4. [place] to be removed in 10-14 days. 5. Physical therapy for mobilization. 6. Aspirin 325 mg daily for anticoagulation. 7. Appreciate input from medicine. 8. Likely discharge to F on Thursday.
[2019-10-01] MEDS: PANTOPRAZOLE 40 MG/10 ML VIAL IVP SCH ×2 (09:24→21:04)
[2019-10-01] MEDS: MEMANTINE 10 MG TAB PO SCH ×2 (09:24→21:04)
[2019-10-01] MEDS: DONEPEZIL 10 MG TAB PO SCH (09:24)
[2019-10-01] MEDS: HYDROcodone/APAP 5-325MG 1 EACH TAB PO PRN (09:39)
[2019-10-01 09:44] LABS: Basophils % (A) 0 %; Eosinophils # (A) 0.1 k/uL (0-0.7); Eosinophils % (A) 1 %; HCT 35.6 % (34.0-46.0); HGB 11.2 gm/dL (11.4-16.0); Hypochromasia Slight; Lymphocytes # (A) 0.6 k/uL (1.0-4.8); Lymphocytes % (A) 5 %; MCH 32.2 pg (25.0-35.0); MCHC 31.5 g/dL (31.0-37.0); MCV 102.2 fL (80.0-100.0); Macrocytosis Slight; Mean Platelet Volume 8.2; Monocytes # (A) 0.7 k/uL (0-1.0); Monocytes % (A) 6 %; Neutrophils # (A) 10.5 k/uL (1.3-7.7); Neutrophils % (A) 88 %; Platelet Count 485 k/uL (150-450); RBC 3.48 m/uL (3.80-5.40)
[2019-10-01 10:00] LABS: Calcium 8.3 mg/dL (8.4-10.2); Potassium 3.7 mmol/L (3.5-5.1)
[2019-10-01] MEDS: MULTIVITAMINS, THERA 1 EACH TAB PO SCH (11:47)
[2019-10-01] MEDS: MAGNESIUM HYDROXIDE 2,400 MG/10 ML CUP PO PRN (16:13)
[2019-10-01] MEDS: LACTATED RINGERS 1,000 ML IV SCH (16:26)
--- NOTE | 2019-10-01 19:26 | PN ---
PROGRESS NOTE DATE OF SERVICE: 10/01/2019 This 79-year-old woman was admitted with fall and right hip fracture surgery. The patient has a UTI, E. coli grown from the culture which is this sensitive to ceftriaxone. No chest pain. No palpitations. No fever. PHYSICAL EXAMINATION: Alert and oriented x3. The pulse is 72, blood pressure 150/69, respiration 14, temperature 98.7, pulse ox 98% on room air. HEENT: Conjunctivae normal. Oral mucosa moist. NECK: No jugular venous distention. No lymph node enlargement. CARDIOVASCULAR: S1, S2, muffled. No S3, no S4, RESPIRATORY: Diminished breath sounds at the bases. A few scattered rhonchi, no crackles. ABDOMEN: Soft, nontender. LEGS: Status post surgery. NERVOUS SYSTEM: No focal deficits. LABS: WBC 12, hemoglobin 11.2, sodium 130, potassium 3.7. ASSESSMENT: 1. Fall and right intertrochanteric proximal right hip fracture status post closed reduction and intramedullary nailing using Synthes nail. 2. Increased WBC. 3. Acute urinary tract infection present on admission with E coli. 4. Increased creatinine with mild acute renal failure, present on admission. 5. Increased MCV. 6. Increased platelets. 7. Minimal abdominal distention, improved. 8. Dementia. 9. Rheumatoid arthritis. 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 11.History of depression. 12.History of left elbow surgery. 13.FULL CODE. RECOMMENDATIONS AND DISCUSSION: Recommend to continue current management, continue to monitor and symptomatic treatment. Otherwise, at this time I recommend continue the antibiotics. PT OT evaluation, ECF rehab. Guarded prognosis. Further recommendations to follow. MMODL / IJN: [id number] /
[2019-10-01] MEDS: ASPIRIN 325 MG TAB PO SCH (21:05)
[2019-10-01] MEDS: SENNOSIDES-DOCUSATE SODIUM 1 EACH TAB PO SCH (21:05)
[2019-10-02] MEDS: SODIUM CHLORIDE 0.9% 1,000 ML IV SCH ×3 (06:02→19:31)
[2019-10-02] MEDS: MEMANTINE 10 MG TAB PO SCH ×2 (08:19→22:09)
[2019-10-02] MEDS: DONEPEZIL 10 MG TAB PO SCH (08:19)
[2019-10-02] MEDS: PANTOPRAZOLE 40 MG/10 ML VIAL IVP SCH ×2 (08:19→22:09)
[2019-10-02] MEDS: HYDROcodone/APAP 5-325MG 1 EACH TAB PO PRN ×2 (08:33→22:14)
--- NOTE | 2019-10-02 09:25 | P.PN ---
Subjective Progress Note Date: 10/02/19 This is an 79-year-old female who is status post closed reduction an intramedullary nailing of the right hip. This is postoperative day #2 and patient is seen and evaluated at bedside. Patient is pleasantly confused. Patient denies any new complaints today. Objective - Vital Signs Vital signs: Vital Signs Temp 99.0 F 10/02/19 08:17 Pulse 84 10/02/19 08:17 Resp 16 10/02/19 08:17 BP 126/74 10/02/19 08:17 Pulse Ox 97 10/02/19 08:17 Intake & Output 10/01/19 10/02/19 10/02/19 18:59 06:59 18:59 Intake Total 480 Output Total 600 400 Balance -120 -400 Intake: IV 480 Sodium Chloride 0.9% 1, 480 000 ml @ 60 mls/hr IV . [id number] [facility] Rx#:[id number] Output: Urine 600 400 Straight 600 Other: Voiding Method Indwelling Catheter - Exam Vital signs are stable. Patient is in no acute distress and is alert and oriented 3. Calf is soft and nontender to palpation. Dressings are clean, dry, and intact. The right lower extremity is warm and well perfused. Neurovascular status and circulatory status are intact. - Labs CBC & Chem 7: 10/01/19 09:13 10/01/19 09:13 Labs: Abnormal Lab Results - Last 24 Hours (Table) 10/01/19 10/01/19 Range/Units 09:13 09:13 WBC 12.0 H (3.8-10.6) k/uL RBC 3.48 L (3.80-5.40) m/uL Hgb 11.2 L (11.4-16.0) gm/dL MCV 102.2 H (80.0-100.0) fL Plt Count 485 H (150-450) k/uL Neutrophils # 10.5 H (1.3-7.7) k/uL Lymphocytes # 0.6 L (1.0-4.8) k/uL Chloride 108 H (98-107) mmol/L Glucose 153 H (74-99) mg/dL Calcium 8.3 L (8.4-10.2) mg/dL Microbiology - Last 24 Hours (Table) 09/28/19 15:49 Blood Culture - Preliminary Blood No Growth after 72 hours 09/28/19 13:28 Urine Culture - Final Urine,Catheterized Escherichia coli Assessment and Plan (1) Closed right hip fracture Current Visit: Yes Status: Acute Code(s): S72.001A - FRACTURE OF UNSP PART OF NECK OF RIGHT FEMUR, INIT SNOMED Code(s): 367879491 (2) Fall Current Visit: Yes Status: Acute Code(s): W19.XXXA - UNSPECIFIED FALL, INITIAL ENCOUNTER SNOMED Code(s): 2777656 Plan: 1. 50% weightbearing to the right lower extremity. 2. Dressings to stay intact for 10 days. 3. May shower with dressings in place. 4. [place] to be removed in 10-14 days. 5. Physical therapy for mobilization. 6. Aspirin 325 mg daily for anticoagulation. 7. Appreciate input from medicine. 8. Likely discharge to ECF on Thursday.
[2019-10-02 09:58] LABS: HGB 10.7 gm/dL (11.4-16.0); Hypochromasia Slight; MCH 32.8 pg (25.0-35.0); MCHC 32.5 g/dL (31.0-37.0); MCV 100.8 fL (80.0-100.0); Macrocytosis Slight; Mean Platelet Volume 8.8; Platelet Count 457 k/uL (150-450); RBC 3.27 m/uL (3.80-5.40); WBC 10.1 k/uL (3.8-10.6)
--- NOTE | 2019-10-02 10:00 | P.GSCN ---
History of Present Illness Consult date: 10/02/19 Reason for Consult: Postoperative urinary retention History of present illness: the patient is an 79-year-old female who fell at home on 09/27 and suffered a right hip fracture. She underwent closed reduction with intra-medullary nailing on 09/29. A catheter was inserted when she was first seen in the emergency room. The patient pulled the catheter out later that day and again the next morning. She has been in and out cathed since that time with amounts of up to 800 mL. I was asked to see the patient for further evaluation. The patient is demented and the history is from review of the patient's chart, conversation with her nurse and a conversation with her grandson. The patient had not been incontinent prior to being admitted. She was voiding every 1-2 hours during the day and 2 or 3 times at night. She had no problems with her bowels prior to admission. Review of Systems ROS unobtainable: due to mental status Past Medical History Past Medical History: Dementia, Rheumatoid Arthritis (RA) Additional Past Medical History / Comment(s): alzheimers, depression History of Any Multi-Drug Resistant Organisms: None Reported Additional Past Surgical History / Comment(s): left elbow surgery, c section 1996 Past Anesthesia/Blood Transfusion Reactions: No Reported Reaction Past Psychological History: Depression Smoking Status: Never smoker Past Alcohol Use History: None Reported Past Drug Use History: None Reported - Past Family History Sister(s) Family Medical History: Diabetes Mellitus, Hypertension Medications and Allergies Home Medications Medication Instructions Recorded Confirmed Type Aspirin EC [Ecotrin] 325 mg PO HS 01/02/16 09/28/19 History Acetaminophen [Tylenol] 1,000 mg PO BID 09/28/19 09/28/19 History Memantine HCl/Donepezil HCl 1 tab PO DAILY 09/28/19 09/28/19 History [Namzaric 28 mg-10 mg Capsule] Allergies Allergy/AdvReac Type Severity Reaction Status Date / Time No Known Allergies Allergy Verified 09/28/19 12:15 Surgical - Exam Vital Signs Temp Pulse Resp BP Pulse Ox 98.0 F 53 L 16 122/77 98 09/28/19 10:21 09/28/19 10:21 09/28/19 10:21 09/28/19 10:21 09/28/19 10:21 - General well developed, well nourished, chronically ill - ENT no hearing loss - Neck no masses - Respiratory normal respiratory effort - Abdomen Abdomen: soft, no organomegaly - Genitourinary normal external genitalia, other (a urethral catheter is in place and draining clear urine) Results - Labs 10/01/19 09:13 10/01/19 09:13 Abnormal Lab Results - Last 24 Hours (Table) 10/01/19 Range/Units 09:13 Chloride 108 H (98-107) mmol/L Glucose 153 H (74-99) mg/dL Calcium 8.3 L (8.4-10.2) mg/dL Microbiology - Last 24 Hours (Table) 09/28/19 15:49 Blood Culture - Preliminary Blood No Growth after 72 hours 09/28/19 13:28 Urine Culture - Final Urine,Catheterized Escherichia coli Diabetes panel 10/01/19 Range/Units 09:13 Sodium 139 (137-145) mmol/L Potassium 3.7 (3.5-5.1) mmol/L Chloride 108 H (98-107) mmol/L Carbon Dioxide 25 (22-30) mmol/L BUN 15 (7-17) mg/dL Creatinine 0.85 (0.52-1.04) mg/dL Glucose 153 H (74-99) mg/dL Calcium 8.3 L (8.4-10.2) mg/dL Calcium panel 10/01/19 Range/Units 09:13 Calcium 8.3 L (8.4-10.2) mg/dL Pituitary panel 10/01/19 Range/Units 09:13 Sodium 139 (137-145) mmol/L Potassium 3.7 (3.5-5.1) mmol/L Chloride 108 H (98-107) mmol/L Carbon Dioxide 25 (22-30) mmol/L BUN 15 (7-17) mg/dL Creatinine 0.85 (0.52-1.04) mg/dL Glucose 153 H (74-99) mg/dL Calcium 8.3 L (8.4-10.2) mg/dL Adrenal panel 10/01/19 Range/Units 09:13 Sodium 139 (137-145) mmol/L Potassium 3.7 (3.5-5.1) mmol/L Chloride 108 H (98-107) mmol/L Carbon Dioxide 25 (22-30) mmol/L BUN 15 (7-17) mg/dL Creatinine 0.85 (0.52-1.04) mg/dL Glucose 153 H (74-99) mg/dL Calcium 8.3 L (8.4-10.2) mg/dL Assessment and Plan (1) Postoperative urinary retention Narrative/Plan: the source of the patient's urinary retention may be a combination of bedrest and sedation related to her recent hip fracture. The patient appeared to be voiding without much difficulty prior to being admitted. I would suggest that an indwelling catheter remain in place for 4-5 more days at which time the patient will hopefully be able to get out of bed and on a commode easier.. As I understand the patient will be transferred to a rehab facility. Once the catheters removed she should be followed with a bladder scan unit to ensure that her post void residuals are not excessive. Current Visit: Yes Status: Acute Code(s): N99.89 - OTH POSTPROCEDURAL COMPLICATIONS AND DISORDERS OF SYS; R33.8 - OTHER RETENTION OF URINE SNOMED Code(s): 589933835
[2019-10-02 11:02] LABS: Band Neutrophils % 1 %; Lymphocytes # (M) 0.91 k/uL (1.0-4.8); Monocytes # (M) 0.81 k/uL (0-1.0); Neutrophils % (M) 80 %; Nucleated Red Blood Cells 0 /100 WBC (0-0); Total Cells Counted 100
[2019-10-02] MEDS: MULTIVITAMINS, THERA 1 EACH TAB PO SCH (12:05)
[2019-10-02] MEDS: MAGNESIUM HYDROXIDE 2,400 MG/10 ML CUP PO PRN (15:07)
[2019-10-02] MEDS: LACTATED RINGERS 1,000 ML IV SCH (15:08)
--- NOTE | 2019-10-02 18:49 | FL ---
EXAMINATION TYPE: FL guidance operating room DATE OF EXAM: 09/30/2019 FLUOROSCOPY Fluoroscopy time of 1 minute 2 seconds was used during right hip nailing. 2 image/s document/s the nelly son.
[2019-10-02 19:34] VITALS: PULSE 85; RESP 16
[2019-10-02] MEDS: SENNOSIDES-DOCUSATE SODIUM 1 EACH TAB PO SCH (22:09)
[2019-10-02] MEDS: ASPIRIN 325 MG TAB PO SCH (22:09)
--- NOTE | 2019-10-03 02:16 | PN ---
PROGRESS NOTE DATE OF SERVICE: 10/02/2019 This 79-year-old woman who was admitted with a fall and right intertrochanteric fracture had surgery. The patient also having urinary difficulties. Urology has seen the patient and the urinary retention was thought to be a combination of bedrest and sedation. Recommend indwelling catheter for at least 4 to 5 days. No chest pain. No palpitation. PHYSICAL EXAMINATION: On exam, alert and oriented x1. Pulse is 67, blood pressure 98/63, respiration 17, temperature 98 degrees, pulse ox 91% on 2 L. HEENT: Conjunctivae normal. NECK: No jugular venous distention. CARDIOVASCULAR: S1, S2 muffled. RESPIRATORY: Breath sounds diminished at the bases. A few scattered rhonchi. ABDOMEN: Soft, nontender. LEGS: Status post surgery. NERVOUS SYSTEM: No focal deficits. LABS: WBC 10.1, hemoglobin 10.7. Other labs are noted. ASSESSMENT: 1. Fall and right intertrochanteric proximal right hip fracture status post closed reduction intramedullary nailing using Synthes nail. 2. Increased WBC. 3. Acute urinary retention, possibly . 4. Acute urinary tract infection present on admission secondary to Escherichia coli. 5. Increased creatinine, acute renal failure, present on admission. 6. Increased MCV. 7. Increased platelets. 8. Minimal abdominal distention, improved. 9. Dementia. 10.Rheumatoid arthritis history. 11.History of MRSA. 12.History of depression. 13.History of left elbow surgery. 14.FULL CODE. RECOMMENDATIONS AND DISCUSSION: Recommend to continue current medications, continue symptomatic treatment. Continue DVT prophylaxis. PT, OT evaluation. Leave the indwelling catheter for a few more days as recommended by Surgery. Guarded prognosis. Further recommendations to follow. MMODL / IJN: [id number] / MTDD
[2019-10-03] MEDS: SODIUM CHLORIDE 0.9% 1,000 ML IV SCH ×2 (05:15→10:21)
[2019-10-03 07:32] VITALS: BP 106/73; TEMP 97.9
[2019-10-03] MEDS: MULTIVITAMINS, THERA 1 EACH TAB PO SCH (08:52)
[2019-10-03] MEDS: MEMANTINE 10 MG TAB PO SCH (08:53)
[2019-10-03] MEDS: DONEPEZIL 10 MG TAB PO SCH (08:53)
[2019-10-03] MEDS: PANTOPRAZOLE 40 MG/10 ML VIAL IVP SCH (08:53)
[2019-10-03] MEDS: MAGNESIUM HYDROXIDE 2,400 MG/10 ML CUP PO PRN (08:58)
--- NOTE | 2019-10-03 12:10 | P.PN ---
Subjective Progress Note Date: 10/03/19 This is an 79-year-old female who is status post closed reduction an intramedullary nailing of the right hip. This is postoperative day #3 and patient is seen and evaluated at bedside. Patient is pleasantly confused, but does admit to pain in the right leg today. Patient denies any new complaints today. Objective - Vital Signs Vital signs: Vital Signs Temp 97.9 F 10/03/19 07:32 Pulse 85 10/03/19 07:32 Resp 16 10/03/19 07:32 BP 106/73 10/03/19 07:32 Pulse Ox 93 L 10/03/19 07:32 Intake & Output 10/02/19 10/03/19 10/03/19 18:59 06:59 18:59 Intake Total 640 200 Output Total 400 600 Balance 240 -600 200 Intake: IV 640 Sodium Chloride 0.9% 1, 640 000 ml @ 80 mls/hr IV . [id number] [facility] Rx#:[id number] Oral 200 Output: Urine 400 600 Other: Voiding Method Indwelling Catheter Indwelling Catheter Indwelling Catheter - Exam Vital signs are stable. Patient is in no acute distress and is alert and oriented 3. Calf is soft and nontender to palpation. Dressings are intact with mild serosanguineous drainage present. The right lower extremity is warm and well perfused. There is mild swelling of the right lower extremity and mild tenderness to palpation over the right calf. Neurovascular status and circulatory status are intact. - Labs CBC & Chem 7: 10/02/19 07:25 10/01/19 09:13 Labs: Microbiology - Last 24 Hours (Table) 09/28/19 15:49 Blood Culture - Preliminary Blood No Growth after 96 hours Assessment and Plan (1) Closed right hip fracture Current Visit: Yes Status: Acute Code(s): S72.001A - FRACTURE OF UNSP PART OF NECK OF RIGHT FEMUR, INIT SNOMED Code(s): 232109107 (2) Fall Current Visit: Yes Status: Acute Code(s): W19.XXXA - UNSPECIFIED FALL, INITIAL ENCOUNTER SNOMED Code(s): 6084915 Plan: 1. 50% weightbearing to the right lower extremity. 2. Dressings to stay intact for 10 days. 3. May shower with dressings in place. 4. [place] to be removed in 10-14 days. 5. Physical therapy for mobilization. 6. Aspirin 325 mg daily for anticoagulation. 7. Appreciate input from medicine. 8. Doppler US pending. 9. Anticipate discharge to rehab in the next 1-2 days.
--- NOTE | 2019-10-03 12:36 | US ---
EXAMINATION TYPE: US venous doppler duplex LE RT DATE OF EXAM: 10/03/2019 11:58 AM COMPARISON: NONE CLINICAL HISTORY: pain. Right leg pain SIDE PERFORMED: Right TECHNIQUE: The lower extremity deep venous system is examined utilizing real time linear array sonog zina with graded compression, doppler sonography and color-flow sonography. VESSELS IMAGED: External Iliac Vein (EIV) Common Femoral Vein Deep Femoral Vein Greater Saphenous Vein * Femoral Vein Popliteal Vein Small Saphenous Vein * Proximal Calf Veins (* superficial vessels) There is normal flow, compressibility, vascular waveforms. Right Leg: Appears negative for DVT Subcutaneous edema channels are present. IMPRESSION: No evident deep venous thrombosis at or above the right knee.
[2019-10-03] MEDS ORDERED: SODIUM BICARB 8.4% 50 ML SYR (1 MEQ/ML) ONE ×2 (13:20→13:37)
[2019-10-03] MEDS ORDERED: EPINEPHrine 10 ML SYRINGE (0.1 MG/ML) ONE (13:20)
--- NOTE | 2019-10-03 13:28 | P.DS ---
Providers Date of admission: 09/28/19 12:52 Expected date of discharge: 10/03/19 Attending physician: Umesh Dick Consults: 09/28/19 12:53 Consult Physician Urgent Consulting Provider: Tomy Mederos Consult Reason/Comments: Medical clearance for surgery Do you want consulting provider notified?: Already Contacted 10/01/19 13:39 Consult Physician Routine Consulting Provider: Ivan Mcmanus Consult Reason/Comments: retention Do you want consulting provider notified?: Yes Primary care physician: Juliet Hardybal - Discharge Diagnosis(es) (1) Closed right hip fracture Current Visit: Yes Status: Acute (2) Fall Current Visit: Yes Status: Acute Hospital Course: This is a 79-year-old female who sustained a right intertrochanteric hip fracture after a fall on 09/28/2019. The patient was evaluated in the emergency room where x-rays revealed intertrochanteric right hip fracture. After discussion and consideration the patient and her family consent to proceed with closed reduction and intramedullary nailing of the right hip. The patient is seen preoperatively by Dr. Dick and cleared for surgery by internal medicine. Patient is admitted to [facility] on 09/28/2019 and closed reduction and intramedullary nailing of the right hip is performed on 09/30/2019. The procedures performed without complication or sequelae. Doppler US of the right lower extremity is negative for DVT. The patient was evaluated for urinary retention by surgical services and is being treated conservatively. Otherwise, the patient is doing well postoperatively. Labs and vital signs are stable on day of discharge. On day of discharge patient's hip incision is healing well. There is minimal erythema. There is minimal serosanguineous drainage noted at this time. There is minimal soft tissue swelling to the hip and thigh. Patient has full foot and ankle motion without difficulty or pain. Neurovascular status to the right lower extremity is intact. Patient is discharged to rehab in good condition. Please see med rec for accurate list of home medications. Patient Condition at Discharge: Fair Plan - Discharge Summary Discharge Rx Participant: Yes New Discharge Prescriptions: New Aspirin 325 mg PO DAILY #30 tab HYDROcodone/APAP 5-325MG [[place] 5-325] 1 tab PO Q6HR PRN #30 tab PRN Reason: Pain Sennosides [Senokot] 2 tab PO DAILY PRN #60 tablet PRN Reason: Constipation No Action Aspirin EC [Ecotrin] 325 mg PO HS Memantine HCl/Donepezil HCl [Namzaric 28 mg-10 mg Capsule] 1 tab PO DAILY Acetaminophen [Tylenol] 1,000 mg PO BID Discharge Medication List Aspirin EC [Ecotrin] 325 mg PO HS 01/02/16 [History] Acetaminophen [Tylenol] 1,000 mg PO BID 09/28/19 [History] Memantine HCl/Donepezil HCl [Namzaric 28 mg-10 mg Capsule] 1 tab PO DAILY 09/28/19 [History] Aspirin 325 mg PO DAILY #30 tab 10/03/19 [Rx] HYDROcodone/APAP 5-325MG [[place] 5-325] 1 tab PO Q6HR PRN #30 tab 10/03/19 [Rx] Sennosides [Senokot] 2 tab PO DAILY PRN #60 tablet 10/03/19 [Rx] Follow up Appointment(s)/Referral(s): Trell Chung MD [Primary Care Provider] - 1-2 days Umesh Dick MD [STAFF PHYSICIAN] - 2 Weeks Activity/Diet/Wound Care/Special Instructions: 50% weightbearing as tolerated to the right lower extremity with walker. Leave dressing intact. Dressings may be removed by home care nurse or by patient in 10 days. May shower with dressing on. Recommend use of compression stockings daily until follow up to help prevent swelling and blood clots. May remove at night before sleeping. Please follow-up with [facility] in 2 weeks and call with any questions or concerns, . Discharge Disposition: TRANSFER TO SNF/ECF
[2019-10-03 13:44] LABS: Glucose,Whole Blood 163 mg/dL (75-99)
--- NOTE | 2019-10-03 14:20 | P.PN ---
Progress Note - Text Progress Note Date: 10/03/19 Code note patient was noted to be unresponsive by the nursing staff, CPR was immediately started. ACLS protocol was followed. Epinephrine was given as well as bicarb. Patient was intubated by anesthesia. Throughout the code she continued to display pulseless electrical activity. Patient had CPR for around 20 minutes. She was given a total of 6 epinephrine and 1, bicarb. Pulse did not come back. Family and attending were notified.
--- NOTE | 2019-10-03 14:23 | P.PN ---
Subjective Progress Note Date: 10/03/19 Principal diagnosis: This is an 79-year-old female who was recently admitted with a fall and underwent right intertrochanteric fracture repair with orthopedic surgery and is being closely monitored. Patient was also found to be having some urinary retention and evaluated by urology and will continue with indwelling Dong catheter at this time. Patient currently seen at the bedside undergoing a venous Doppler of the right lower extremity. Doppler study was negative for DVT. Patient was scheduled for ECF rehab for continued PT/OT therapy. Review of systems: Constitutional: no Reports of fevers or chills Cardiovascular: No reports of chest pain or palpitations Respiratory: No reports of worsening shortness of breath or cough GI: No reports of nausea, vomiting, or diarrhea : No reports of dysuria, currently an indwelling Dong catheter Neurovascular: Reports generalized weakness and pain of the right leg, no reports of numbness Active Medications Acetaminophen (Tylenol Tab) 650 mg PO Q6HR PRN PRN Reason: Mild Pain or Fever > 100.5 Last Admin: 09/28/19 13:35 Dose: 650 mg Documented by: Hydrocodone Bitart/Acetaminophen ([place] 5-325) 1 each PO Q6HR PRN PRN Reason: Pain Last Admin: 10/02/19 22:14 Dose: 1 each Documented by: Alprazolam (Xanax) 0.25 mg PO TID PRN PRN Reason: Anxiety Aspirin (Aspirin) 325 mg PO HS [facility] Last Admin: 10/02/19 22:09 Dose: 325 mg Documented by: Donepezil HCl (Aricept) 10 mg PO DAILY [facility] Last Admin: 10/03/19 08:53 Dose: 10 mg Documented by: Hydromorphone HCl (Dilaudid) 0.5 mg IVP Q4HR PRN PRN Reason: Severe Pain Last Admin: 09/30/19 20:17 Dose: 0.5 mg Documented by: Hydromorphone HCl (Dilaudid) 0.125 mg IVP Q3HR PRN PRN Reason: Pain Scale 1 to 3 Hydromorphone HCl (Dilaudid) 0.25 mg IVP Q3HR PRN PRN Reason: Pain Scale 4 to 6 Hydromorphone HCl (Dilaudid) 0.5 mg IVP Q3HR PRN PRN Reason: Pain Scale 7 to 10 Sodium Chloride (Saline 0.9%) 1,000 mls @ 80 mls/hr IV .[id number] [facility] Last Admin: 10/03/19 05:15 Dose: Not Given Documented by: Lactated Ringer's (Lactated Ringers) 1,000 mls @ 20 mls/hr IV .Q24H [facility] Last Admin: 10/02/19 15:08 Dose: Not Given Documented by: Sodium Chloride (Saline 0.9%) 1,000 mls @ 60 mls/hr IV .[id number] [facility] Last Admin: 10/03/19 10:21 Dose: 60 mls/hr Documented by: Ceftriaxone Sodium 1 gm/ (Sodium Chloride) 50 mls @ 100 mls/hr IVPB Q24HR@1600 [facility] Last Admin: 10/02/19 15:07 Dose: 100 mls/hr Documented by: Lidocaine HCl (.Xylocaine 1% Inj (10mg/Ml) For Iv Start) 0.1 ml INTRADERMA PER PROTOCOL PRN PRN Reason: IV Start Magnesium Hydroxide (Milk Of Magnesia) 2,400 mg PO DAILY PRN PRN Reason: Constipation Last Admin: 10/03/19 08:58 Dose: 2,400 mg Documented by: Memantine (Namenda) 10 mg PO BID [facility] Last Admin: 10/03/19 08:53 Dose: 10 mg Documented by: Multivitamins (Theragran) 1 each PO DAILY@1200 [facility] Last Admin: 10/03/19 08:52 Dose: 1 each Documented by: Naloxone HCl (Narcan) 0.2 mg IV Q2M PRN PRN Reason: Opioid Reversal Naloxone HCl (Narcan) 0.2 mg IV Q2M PRN PRN Reason: Opioid Reversal Pantoprazole Sodium (Protonix) 40 mg PO BID [facility] Senna/Docusate Sodium (Senokot-S) 2 each PO HS [facility] Last Admin: 10/02/19 22:09 Dose: 2 each Documented by: Tramadol HCl (Ultram) 50 mg PO Q6H PRN PRN Reason: Pain Scale 1 to 5 Tramadol HCl (Ultram) 100 mg PO QID PRN PRN Reason: Pain Scale 6 to 10 Objective - Vital Signs Vital signs: Vital Signs Temp 97.9 F 10/03/19 07:32 Pulse 85 06/29/20 07:32 Resp 16 10/03/19 07:32 BP 106/73 10/03/19 07:32 Pulse Ox 93 L 10/03/19 07:32 Intake & Output 10/02/19 10/03/19 10/03/19 18:59 06:59 18:59 Intake Total 640 200 Output Total 400 600 Balance 240 -600 200 Intake: IV 640 Sodium Chloride 0.9% 1, 640 000 ml @ 80 mls/hr IV . [id number] [facility] Rx#:[id number] Oral 200 Output: Urine 400 600 Other: Voiding Method Indwelling Catheter Indwelling Catheter Indwelling Catheter - Exam Gen: This is a 79-year-old female sitting up in the chair, awake, alert and oriented 1, currently receiving a venous Doppler of the right lower extremity. Temp is 97.9F, pulse is 85, respirations are 16, blood pressure is 106/73, oxygen is 93% on room air. HEENT: Head is atraumatic, normocephalic. Pupils equal, round. Sclerae is anicteric. NECK: Supple. No JVD. No lymphadenopathy. No thyromegaly. LUNGS: Diminished breath sounds at the bases with some scattered rhonchi noted. No intercostal retractions. HEART: S1, S2 are muffled ABDOMEN: Soft. Bowel sounds are present. No masses. No tenderness. EXTREMITIES: No pedal edema. No calf tenderness. Status post surgery on the right, dressing is dry and intact NEUROLOGICAL: Patient is awake, alert and oriented x1. Diffuse weakness - Labs CBC & Chem 7: 10/02/19 07:25 10/01/19 09:13 Labs: Abnormal Lab Results - Last 24 Hours (Table) 10/03/19 Range/Units 13:24 POC Glucose (mg/dL) 163 H (75-99) mg/dL Microbiology - Last 24 Hours (Table) 09/28/19 15:49 Blood Culture - Preliminary Blood No Growth after 96 hours Assessment and Plan Assessment: Fallen right intertrochanteric proximal right hip fracture status post closed reduction intramedullary nailing using Synthes nail Increased WBC Acute urinary retention Acute urinary tract infection, present on admission secondary to E. coli Increased creatinine, acute renal failure, present on admission Increased MCV Increased platelets minimal abdominal distention, improved Dementia [place] rheumatoid arthritis history History of MRSA history of depression History of left elbow surgery Full code Recommendations and discussion: Recommend to continue current medications, management, and symptomatic treatmen t. Patient to continue with indwelling Dong catheter as recommended by surgery and urology. PT/OT following and patient is scheduled to go to ECF for continued therapy. Will continue to follow along with surgery. Guarded prognosis. Further recommendations to follow. Later in the afternoon at approximately 1:30 PM was notified by nursing staff that patient was found unresponsive during rounds of obtaining vital signs. CODE CIARA was called. Multiple attempts of epinephrine along with continued CPR and patient . Please refer to nursing notes for time of .
[2019-10-03] MEDS ORDERED: PANTOPRAZOLE 40 MG TABLET PO SCH (21:00)
--- NOTE | 2019-10-05 09:46 | CDI ---
Documentation Clarification Form Date: 10/05/2019 09:34:14 AM From: Nataliya Pérez Phone: If you have a question about this query, please contact [employer] at [phone] between 8am and 5pm. Admit Date: 09/28/2019 12:52:00 PM Patient Name: Crystal Larsen Visit Number: [id number] Discharge Date: 10/03/2019 04:00:00 PM ATTENTION: The Clinical Documentation Specialists (CDI) and [facility] Coding Staff appreciate your assistance in clarifying documentation. Please respond to the clarification below the line at the bottom and electronically sign. The CDI & [facility] Coding staff will review the response and follow-up if needed. Please note: Queries are made part of the Legal Health Record. If you have any questions, please contact the author of this message via ITS. Dr. Umesh Dick _Minimal abdominal distention is documented in the IM consult and progress notes 10/02. Patient had an abdominal Xray on 09/27 showing possible ileus. Please clarify if patient had possible ileus. Patient history/risk factors: fracture IT femur with IM fixation and closed reduction Clinical Indicators: Radiology: possible ileus Vital Signs: 98 F, 53 bpm, 16, 122/77, 98% RA Other Clinical Indicators: abdominal distention Other Treatment: abdominal xray Clinical significance of diagnostic testing and treatment cannot be assumed or coded without physician documentation of the significance, if any. Signs or symptoms of an underlying condition should be coded only if not definite diagnosis is determined. In your professional opinion, can you please clarify the underlying cause of the patients symptoms, if known? Ileus Ileus ruled out Other, please specify Unable to determine UNABLE TO DETERMINE. I DO NOT BELIEVE ILEUS WAS RULED OUT. BIMALD
--- NOTE | 2019-10-12 09:31 | CDI ---
Documentation Clarification Form Date: 10/12/2019 09:25:58 AM From: Giovana Slade RN, CCDS Admit Date: 09/28/2019 12:52:00 PM Patient Name: Crystal Larsen Visit Number: [id number] Discharge Date: 10/03/2019 04:00:00 PM ATTENTION: The Clinical Documentation Specialists (CDI) and [facility] Coding Staff appreciate your assistance in clarifying documentation. Please respond to the clarification below the line at the bottom and electronically sign. The CDI & [facility] Coding staff will review the response and follow-up if needed. Please note: Queries are made part of the Legal Health Record. If you have any questions, please contact the author of this message via ITS. Dr. Tomy Mederos Please render your opinion on the clinical significance of the patients hemoglobin/hematocrit levels. History/Risk Factors: ARF, UTI, Alzheimer's dementia, dehydration, Fall with Right IT proximal femur Fx s/p IT nailing Clinical indicators: 09/27-10/01 Hgb Trend: 14.1/13/12.5/12.0/11.2/10.7 09/27-10/01 Hct Trend: 44.3/39.2/38.6/39.1/35.6/33 09/29 Procedure EBL: 50 cc Treatment: Lab Monitoring 0.9%NS @ 60 cc/hr In order to capture the severity of condition, please clarify if the labs/clinical indicators signify: Acute blood loss anemia (please include if d/t procedure and if expected or unexpected) Acute on chronic blood loss anemia Chronic blood loss anemia Iron deficiency anemia Nutritional anemia Anemia of chronic disease Unable to determine Other, please specify (Last Form Revision: June 2019) Unable to determine MTDD
== END 2019-10-03 16:00 | disposition expired | DRG 481 ==
LOC: EC 10:16 → SUPCPDRO 10:16 → EEVIPCON 10:16 → 4SSUR 12:52
PROVIDERS: ADMIT Orthopaedic Surgery; ATTEND Orthopaedic Surgery
PROC: 0QS606Z Reposition Right Upper Femur with Intramedullary Internal Fixation Device, Open Approach (ICD-10-PCS; principal; 2019-09-30 14:50)
PROC: 5A12012 Performance of Cardiac Output, Single, Manual (ICD-10-PCS; 2019-10-03)
PROC: 0BH17EZ Insertion of Endotracheal Airway into Trachea, Via Natural or Artificial Opening (ICD-10-PCS; 2019-10-03)
DX: S72.141A Displaced intertrochanteric fracture of right femur, initial encounter for closed fracture (principal); N17.9 Acute kidney failure, unspecified; N39.0 Urinary tract infection, site not specified; I46.9 Cardiac arrest, cause unspecified; W18.30XA Fall on same level, unspecified, initial encounter; Y92.009 Unspecified place in unspecified non-institutional (private) residence as the place of occurrence of the external cause; B96.20 Unspecified Escherichia coli [E. coli] as the cause of diseases classified elsewhere; E86.0 Dehydration; G30.9 Alzheimer's disease, unspecified; F02.80 Dementia in other diseases classified elsewhere, unspecified severity, without behavioral disturbance, psychotic disturbance, mood disturbance, and anxiety; F32.9 Major depressive disorder, single episode, unspecified; K31.89 Other diseases of stomach and duodenum; Z11.59 Encounter for screening for other viral diseases; R00.1 Bradycardia, unspecified; R40.2243 Coma scale, best verbal response, confused conversation, at hospital admission; R40.2143 Coma scale, eyes open, spontaneous, at hospital admission; R40.2363 Coma scale, best motor response, obeys commands, at hospital admission; D47.3 Essential (hemorrhagic) thrombocythemia; T42.75XA Adverse effect of unspecified antiepileptic and sedative-hypnotic drugs, initial encounter; R33.0 Drug induced retention of urine; M06.9 Rheumatoid arthritis, unspecified; M85.80 Other specified disorders of bone density and structure, unspecified site; Z79.82 Long term (current) use of aspirin; Z82.49 Family history of ischemic heart disease and other diseases of the circulatory system; Z83.3 Family history of diabetes mellitus; Z86.14 Personal history of Methicillin resistant Staphylococcus aureus infection
CPT/HCPCS: 71045; 73501; 73502; 74018; 80048; 80053; 81001; 85025; 85610; 85730; 87040; 87077; 87086; 87186; 92950; 93005; 96361; 96365; 99285